=== PATIENT | female | born 1990 | race Caucasian/White ===

== ENCOUNTER 2017-08-05 17:55 | Observation (INO) | payer OTHER ==
[~2017-08-05] VITALS: Ht 162.6 cm; Wt 73.9 kg
[2017-08-05 18:18] VITALS: BP 125/70
[2017-08-05] MEDS ORDERED: TERBUTALINE 1 MG/ML VIAL SUBQ SCH (18:40)
[2017-08-05] MEDS ORDERED: TERBUTALINE 1 MG/ML VIAL SUBQ ONE ×2 (18:59→19:39)
== END 2017-08-05 20:20 | disposition home or self-care (01) ==
LOC: MLD 17:55
PROVIDERS: ADMIT Obstetrics & Gynecology; ATTEND Obstetrics & Gynecology
DX: O62.9 Abnormality of forces of labor, unspecified (principal); Z3A.34 34 weeks gestation of pregnancy
CPT/HCPCS: 96372; G0378; J3105

== ENCOUNTER 2017-08-25 03:20 | Inpatient (IN) | payer OTHER ==
[~2017-08-25] VITALS: Ht 162.6 cm; Wt 76.2 kg
[2017-08-25] MEDS ORDERED: TERBUTALINE 1 MG/ML VIAL SUBQ ONE ×3 (04:14→16:02)
[2017-08-25] MEDS ORDERED: BETAMETH ACET/BETAMETH NA PH 30 MG/5 ML VIAL IM ONE ×2 (04:15→16:22)
[2017-08-25] MEDS ORDERED: ACETAMINOPHEN EXTRA STRENGTH 500 MG TAB ONE (04:29)
[2017-08-25] MEDS ORDERED: BETAMETH ACET/BETAMETH NA PH 30 MG/5 ML VIAL IM PRN (04:30)
[2017-08-25] MEDS ORDERED: TERBUTALINE 1 MG/ML VIAL SUBQ SCH ×2 (05:35→16:05)
[2017-08-25] MEDS ORDERED: ACETAMINOPHEN EXTRA STRENGTH 500 MG TAB PO PRN (05:35)
[2017-08-25 06:07] VITALS: BP 104/69
[2017-08-25 07:01] LABS: BASOPHILS # (AUTO) 0.1 K/uL (0.00-0.22); BASOPHILS % (AUTO) 0.6 % (0.0-2.0); EOSINOPHILS % (AUTO) 0.4 % (0.0-4.0); HEMATOCRIT 31.3 % (36-48); HEMOGLOBIN 10.6 g/dL (12.0-16.0); LYMPHOCYTES # (AUTO) 1.4 K/uL (2.5-16.5); LYMPHOCYTES % (AUTO) 13.4 % (20.5-51.1); MEAN CORPUSCULAR HEMOGLOBIN 28 pg (27-31); MEAN CORPUSCULAR HGB CONC 34 g/dL (33-37); MEAN CORPUSCULAR VOLUME 83 fL (80-94); MONOCYTES # (AUTO) 0.4 K/uL (0.8-1.0); NEUTROPHILS # (AUTO) 8.7 K/uL (1.8-7.7); NEUTROPHILS % (AUTO) 81.6 % (42.2-75.2); PLATELET COUNT (AUTO) 251 K/uL (140-450); RED BLOOD CELL COUNT(AUTO) 3.79 MIL/uL (4.20-5.40); WHITE BLOOD COUNT (AUTO) 10.6 K/uL (4.8-10.8)
[2017-08-25 07:08] LABS: ALBUMIN 2.5 g/dL (3.4-5.0); ANION GAP 16.6 (8-16); CARBON DIOXIDE 20.5 mmol/L (21-32); CREATININE 0.6 mg/dL (0.6-1.3); POTASSIUM 3.1 mmol/L (3.5-5.1); TOTAL BILIRUBIN 0.6 mg/dL (0.0-1.0)
[2017-08-25 09:33] LABS: APPEARANCE,URINE HAZY (CLEAR); BILIRUBIN,URINE NEGATIVE (NEGATIVE); BLOOD, URINE TRACE-I (NEGATIVE); COLOR,URINE YELLOW (YELLOW); LEUKOCYTE ESTERASE ,URINE NEGATIVE (NEGATIVE); NITRITE, URINE NEGATIVE (NEGATIVE); UGLUCOSE NEGATIVE (NEGATIVE)
[2017-08-25 09:43] LABS: RBC,URINE 0-5 (RARE) /HPF (0-5); WBC,URINE 0-5 (RARE) /HPF (0-5); YEAST,URINE Rare /HPF (None Seen)
--- NOTE | 2017-08-25 10:17 | NUR ---
PATIENT HAS BEEN SCREENED AND CATEGORIZED LOW NUTRITION RISK. PATIENT WILL BE SEEN WITHIN 7 DAYS OF ADMISSION. 08/31/[address]
[2017-08-25] MEDS: LACTATED RINGERS 1,000 ML IV SCH ×2 (13:49→16:23)
[2017-08-25] MEDS ORDERED: ceFAZolin 1,000 MG VIAL ONE (20:18)
[2017-08-25] MEDS ORDERED: OXYTOCIN 10 UNITS/ML VIAL ONE (20:29)
[2017-08-25] MEDS ORDERED: METHYLERGONOVINE 0.2 MG/ML AMP ONE (20:30)
[2017-08-25] MEDS ORDERED: BUPIVACAINE-MPF 0.75% 10 ML VIAL INJ ONE (20:36)
[2017-08-25] MEDS ORDERED: OXYTOCIN 10 UNITS/ML VIAL IV ONE (20:36)
[2017-08-25] MEDS ORDERED: ceFAZolin 1,000 MG VIAL IVP ONE (20:40)
[2017-08-25] MEDS ORDERED: MIDAZOLAM 2 MG/2 ML VIAL ONE (20:44)
[2017-08-25] MEDS ORDERED: MORPHINE PRES FREE 10 MG/10 ML AMP IV ONE (20:44)
[2017-08-25] MEDS ORDERED: diphenhydrAMINE 50 MG/ML VIAL ONE (21:19)
[2017-08-25] MEDS ORDERED: OXYTOCIN 20 UNITS/LR PREMIX 1,000 ML IV ONE (21:19)
[2017-08-25] MEDS ORDERED: OXYTOCIN 20 UNITS in LACTATED RINGERS 1,000 ML IV SCH ×2 (21:41→21:42)
[2017-08-25] MEDS ORDERED: MEPERIDINE 25 MG/ML SYR IVP PRN (21:45)
[2017-08-25] MEDS ORDERED: MEASLES, MUMPS, AND RUBELLA 1 VIAL SQVAC PRN (21:45)
[2017-08-25] MEDS ORDERED: SIMETHICONE 80 MG TAB.CHEW PO PRN (21:45)
[2017-08-25] MEDS ORDERED: HYDROmorphone 1 MG/ML AMP IVP PRN (21:45)
[2017-08-25] MEDS ORDERED: NALBUPHINE 10 MG/ML AMP IVP PRN (21:45)
[2017-08-25] MEDS ORDERED: HYDROcodone/APAP 5/325 MG 1 TAB TAB PO PRN (21:45)
[2017-08-25] MEDS ORDERED: METHYLERGONOVINE 0.2 MG/ML AMP IM PRN (21:45)
[2017-08-25] MEDS ORDERED: diphenhydrAMINE 50 MG/ML VIAL IVP PRN ×2 (21:45)
[2017-08-25] MEDS ORDERED: TEMAZEPAM 15 MG CAP PO PRN (21:45)
[2017-08-25] MEDS ORDERED: ONDANSETRON 4 MG/2 ML VIAL IVP PRN ×2 (21:45)
[2017-08-25] MEDS ORDERED: NALOXONE 0.4 MG/ML VIAL IVP PRN ×3 (21:45)
[2017-08-26] MEDS ORDERED: OXYTOCIN 10 UNITS/ML VIAL ONE (02:15)
[2017-08-26] MEDS: KETOROLAC 30 MG/ML VIAL IM/IVP SCH ×4 (06:07→18:28)
[2017-08-26 07:16] LABS: HEMATOCRIT 27.6 % (36-48); HEMOGLOBIN 9.2 g/dL (12.0-16.0); MEAN CORPUSCULAR HEMOGLOBIN 28 pg (27-31); MEAN CORPUSCULAR HGB CONC 33 g/dL (33-37); MEAN CORPUSCULAR VOLUME 83 fL (80-94); RED BLOOD CELL COUNT(AUTO) 3.31 MIL/uL (4.20-5.40); RED CELL DISTRIBUTION WIDTH 14.2 % (11.6-13.7); WHITE BLOOD COUNT (AUTO) 21.9 K/uL (4.8-10.8)
[2017-08-26 07:17] LABS: PLATELET COUNT (AUTO) 246 K/uL (140-450)
[2017-08-26 07:27] LABS: LYMPHOCYTES % (MANUAL) 6 % (20-46); MONOCYTES % (MANUAL) 4 % (5-12)
[2017-08-26] MEDS ORDERED: SODIUM PHOSPHATE 118 ML ENEM RC SCH (09:00)
[2017-08-26] MEDS: DOCUSATE SOD/SENNA 50/8.6 MG 1 TAB PO SCH (21:01)
[2017-08-26] MEDS: IBUPROFEN 800 MG TAB PO PRN (21:03)
[2017-08-26] MEDS ORDERED: AMMONIA AROMATIC 1 INHL INH ONE (22:01)
[2017-08-27] MEDS: KETOROLAC 30 MG/ML VIAL IM/IVP SCH (00:05)
[2017-08-27] MEDS: oxyCODONE/APAP 5/325 MG 1 TAB TAB PO PRN ×3 (06:44→22:30)
[2017-08-27] MEDS: IBUPROFEN 800 MG TAB PO PRN ×2 (10:35→20:17)
[2017-08-27] MEDS: DOCUSATE SOD/SENNA 50/8.6 MG 1 TAB PO SCH ×2 (20:13→20:17)
[2017-08-28] MEDS: IBUPROFEN 800 MG TAB PO PRN ×2 (05:13→13:10)
[2017-08-28] MEDS ORDERED: ACET-8386 PO (09:10)
[2017-08-28] MEDS ORDERED: IBUP-2218 PO (09:10)
== END 2017-08-28 15:00 | disposition home or self-care (01) | DRG 540 ==
LOC: MLD 03:20 → OBSVTOIN 04:00 → MLD 05:28 → MFCC 22:15
PROVIDERS: ADMIT Obstetrics & Gynecology; ATTEND Obstetrics & Gynecology
PROC: 0UL70ZZ Occlusion of Bilateral Fallopian Tubes, Open Approach (ICD-10-PCS; 2017-08-25)
PROC: 10D00Z1 Extraction of Products of Conception, Low, Open Approach (ICD-10-PCS; principal; 2017-08-25 20:30)
DX: O34.211 Maternal care for low transverse scar from previous cesarean delivery (principal); Z30.2 Encounter for sterilization; Z37.0 Single live birth; Z3A.36 36 weeks gestation of pregnancy
CPT/HCPCS: 36415; 80053; 81001; 85025; 86592; 86886; 86900; 86901; G0378; J0690; J0702; J1200; J1885; J2210; J2250; J2270; J2590; J3105; J3490; J7060; J7120

== ENCOUNTER 2020-08-25 19:10 | Emergency (ER) | payer OTHER ==
[~2020-08-25] VITALS: Ht 162.6 cm; Wt 52.6 kg
[~2020-08-25 19:10] MED LIST: ACET-8386 PO; IBUP-2218 PO
[2020-08-25 19:14] VITALS: BP 103/39
--- NOTE | 2020-08-25 19:14 | NUR ---
pt biba taken to bed #4
[2020-08-25] MEDS ORDERED: LORazepam 2 MG/ML VIAL IVP ONE (19:40)
[2020-08-25] MEDS ORDERED: NACL 0.9% 1,000 ML IV ONE (19:40)
--- NOTE | 2020-08-25 19:40 | NUR ---
30 y/o female c/o c/o palpiations and anxiousness. pt states tingling sensation in chest area. denies pain at this time. sinus tachycardia on monitor. lung sounds clear. medhx- hyperthyroidism, graves disease. nka
[2020-08-25 20:11] LABS: BASOPHILS # (AUTO) 0.1 K/uL (0.00-0.22); BASOPHILS % (AUTO) 0.7 % (0.0-2.0); EOSINOPHILS % (AUTO) 0.1 % (0.0-4.0); HEMOGLOBIN 7.3 g/dL (12.0-16.0); LYMPHOCYTES # (AUTO) 1.2 K/uL (2.5-16.5); LYMPHOCYTES % (AUTO) 15.4 % (20.5-51.1); MEAN CORPUSCULAR HEMOGLOBIN 21 pg (27-31); MEAN CORPUSCULAR HGB CONC 31 g/dL (33-37); MONOCYTES # (AUTO) 0.6 K/uL (0.8-1.0); MONOCYTES % (AUTO) 7.8 % (1.7-9.3); NEUTROPHILS # (AUTO) 6.1 K/uL (1.8-7.7); PLATELET COUNT (AUTO) 365 K/uL (140-450); RED BLOOD CELL COUNT(AUTO) 3.47 MIL/uL (4.20-5.40); RED CELL DISTRIBUTION WIDTH 17.4 % (11.6-13.7); WHITE BLOOD COUNT (AUTO) 8.1 K/uL (4.8-10.8)
[2020-08-25 20:33] LABS: ALBUMIN 4.1 g/dL (3.4-5.0); ANION GAP 15.5 (8-16); ASPARTATE AMINOTRANSFERASE 23 U/L (15-37); CARBON DIOXIDE 23.4 mmol/L (21-32); CHLORIDE 104 mmol/L (98-107); CREATININE 0.7 mg/dL (0.6-1.3); FREE T4 (FREE THYROXINE) 0.97 ng/dL (0.76-1.46); GFR ARICAN-AMERICAN 126 mL/min (>90); GLUCOSE 124 mg/dL (74-106); SODIUM SERUM 140 mmol/L (136-145); THYROID STIMULATING HORMONE 4.79 uIU/mL (0.34-3.74); TOTAL BILIRUBIN 0.8 mg/dL (0.0-1.0); UREA NITROGEN, BLOOD 16 mg/dL (7-18)
[2020-08-25 20:40] LABS: ACETAMINOPHEN < 0.5 ug/ml (10-30); POTASSIUM 2.9 mmol/L (3.5-5.1); SALICYLATE < 2.8 mg/dL (2.8-20.0)
[2020-08-25] MEDS ORDERED: POTASSIUM CHLORIDE 10 MEQ TABER PO ONE (20:40)
--- NOTE | 2020-08-25 20:40 | NUR ---
CRITICAL LAB VALUE REPORTED FROM [facility] FOR A POTASSIUM LEVEL OF 2.9 ERMD MADE AWARE
--- NOTE | 2020-08-25 21:09 | NUR ---
RECIEVED CALL FROM LAB, BLOOD IS SPECIAL ORDER. STATED BLOOD WILL NOT BE READY FOR 4-[address] SALAZAR MADE AWARE.
--- NOTE | 2020-08-25 23:17 | NUR ---
PT HAS EYES CLOSED, RESPIRATIONS EVEN AND UNLABORED. CHEST RISE IS SYMMERTICAL. WILL CONTINUE TO MONITOR.
--- NOTE | 2020-08-26 01:17 | NUR ---
called lab, stated blood will be ready in 45 min.
--- NOTE | 2020-08-26 02:20 | NUR ---
Consent signed per DR SALAZAR agreeing to administration of blood. Blood has been type and crossmatched. Blood sent from blood bank. Information on unit of blood checked against patient wristband at bedside by two nurses. All information matches. Patient or responsible green party informed of potential complications associated with blood transfusion. Informed of possible transfusion reaction symptoms. Aware of need to notify nurse at once of itching, shortness of breath, flushing, feeling of impending doom, or other symptoms not previously present. Vital signs taken within 5 minutes prior to initiation of transfusion. RN will remain with patient for first 15 minutes of transfusion at which time vital signs will be re-assessed.
--- NOTE | 2020-08-26 04:30 | NUR ---
BLOOD TRANSFUSION CURRENTLY INFUSING. WILL CONTINUE TO MONITOR.
--- NOTE | 2020-08-26 05:00 | NUR ---
BLOOD TRANSFUSISON COMPLETED, SHELTOND MADE AWARE.
[2020-08-26 05:15] VITALS: BP 98/61
--- NOTE | 2020-08-26 05:15 | NUR ---
Patient discharged with v/s stable. Written and verbal after care instructions given and explained. Patient alert, oriented and verbalized understanding of instructions. Ambulatory with steady gait. All questions addressed prior to discharge. ID band removed. Patient advised to follow up with PMD. Rx of TAPAZOLE AND ATENOLOL given. Patient educated on indication of medication including possible reaction and side effects. Opportunity to ask questions provided and answered.
== END 2020-08-26 05:15 | disposition home or self-care (01) ==
LOC: MED 19:10
DX: E05.00 Thyrotoxicosis with diffuse goiter without thyrotoxic crisis or storm (principal); D64.9 Anemia, unspecified; F41.9 Anxiety disorder, unspecified; I10 Essential (primary) hypertension; Z79.899 Other long term (current) drug therapy
CPT/HCPCS: 36415; 80053; 84439; 84443; 85025; 86886; 86900; 86901; 86920; 93005; 96361; 96374; 99285; G0480; G0482; J2060; J7030; P9016; 99284

== ENCOUNTER 2020-08-28 01:10 | Emergency (ER) | payer OTHER ==
[~2020-08-28] VITALS: Ht 162.6 cm; Wt 51.7 kg
[2020-08-28 01:15] VITALS: BP 100/60
--- NOTE | 2020-08-28 01:18 | NUR ---
TO LOBBY A/W BED AMBULATORY
--- NOTE | 2020-08-28 02:09 | NUR ---
PT TAKEN TO RAD VIA W/C
--- NOTE | 2020-08-28 02:39 | NUR ---
PT AMBULATED TO BED #7
--- NOTE | 2020-08-28 02:50 | NUR ---
COVERING PRIMARY RN FOR LUNCH RELIEF---- SEE COMPLETE ASSESSMENT
[2020-08-28] MEDS ORDERED: KETOROLAC 30 MG/ML VIAL IVP ONE (02:55)
[2020-08-28] MEDS ORDERED: NACL 0.9% 1,000 ML IV ONE (02:55)
--- NOTE | 2020-08-28 02:59 | NUR ---
20G IV TO LT AC. BLOOD COLLECTED VIA IV START. IV LINE FLUSED AT PATENT.
[2020-08-28 03:07] LABS: BASOPHILS % (AUTO) 0.6 % (0.0-2.0); EOSINOPHILS % (AUTO) 0.3 % (0.0-4.0); HEMATOCRIT 29.4 % (36-48); HEMOGLOBIN 8.9 g/dL (12.0-16.0); LYMPHOCYTES % (AUTO) 17.6 % (20.5-51.1); MEAN CORPUSCULAR HEMOGLOBIN 22 pg (27-31); MEAN CORPUSCULAR HGB CONC 30 g/dL (33-37); MEAN CORPUSCULAR VOLUME 72.9 fL (80-94); MONOCYTES # (AUTO) 0.7 K/uL (0.8-1.0); MONOCYTES % (AUTO) 11.2 % (1.7-9.3); NEUTROPHILS # (AUTO) 4.2 K/uL (1.8-7.7); NEUTROPHILS % (AUTO) 70.3 % (42.2-75.2); PLATELET COUNT (AUTO) 291 K/uL (140-450); RED BLOOD CELL COUNT(AUTO) 4.03 MIL/uL (4.20-5.40); RED CELL DISTRIBUTION WIDTH 19.1 % (11.6-13.7); WHITE BLOOD COUNT (AUTO) 5.9 K/uL (4.8-10.8)
[2020-08-28 03:18] LABS: ANION GAP 22.1 (8-16); CARBON DIOXIDE 25.8 mmol/L (21-32); CREATININE 0.6 mg/dL (0.6-1.3); POTASSIUM 3.9 mmol/L (3.5-5.1)
[2020-08-28] MEDS ORDERED: fentaNYL citrate 0.05 MG/ML VIAL IVP ONE (03:30)
[2020-08-28] MEDS ORDERED: LORazepam 2 MG/ML VIAL IVP ONE (03:35)
--- NOTE | 2020-08-28 03:45 | NUR ---
PT STILL HAVING PAIN, NO RELIEF FROM TORADOL, MD SALAZAR AWARE AND AT BEDSIDE.
--- NOTE | 2020-08-28 04:08 | NUR ---
PT STATES PAIN IS BETTER RATING IT 3/10
[2020-08-28 04:34] VITALS: BP 101/59
--- NOTE | 2020-08-28 04:35 | NUR ---
Patient discharged with v/s stable. Written and verbal after care instructions given and explained. Patient alert, oriented and verbalized understanding of instructions. Ambulatory with steady gait. All questions addressed prior to discharge. ID band removed. Patient advised to follow up with PMD. Rx of ROBAXIN, TRMADOL, AND MOTRIN given. Patient educated on indication of medication including possible reaction and side effects. Opportunity to ask questions provided and answered.
== END 2020-08-28 04:35 | disposition home or self-care (01) ==
LOC: MED 01:10
DX: S16.1XXA Strain of muscle, fascia and tendon at neck level, initial encounter (principal); I10 Essential (primary) hypertension; E07.9 Disorder of thyroid, unspecified; Z79.899 Other long term (current) drug therapy; Z88.8 Allergy status to other drugs, medicaments and biological substances; X58.XXXA Exposure to other specified factors, initial encounter; Y93.89 Activity, other specified; Y92.89 Other specified places as the place of occurrence of the external cause; Y99.8 Other external cause status
CPT/HCPCS: 36415; 72040; 80048; 85025; 96361; 96374; 96375; 99284; J1885; J2060; J3010; J7030

== ENCOUNTER 2020-09-08 18:13 | Emergency (ER) | payer OTHER ==
[~2020-09-08] VITALS: Ht 162.6 cm; Wt 57.6 kg
[2020-09-08 18:18] VITALS: BP 104/59
--- NOTE | 2020-09-08 18:23 | NUR ---
PT PLACED IN BED 5.
--- NOTE | 2020-09-08 19:10 | NUR ---
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 . PT DESCRIBES PAIN SHARP AND NUMB. DENIES N/V/D; SKIN IS PINK/WARM/DRY; AAOX4 WITH EVEN AND STEADY GAIT; LUNGS CLEAR BL; HR EVEN AND REGULAR; PT DENIES ANY FEVER. PATIENT STATES PAIN OF 3/10 AT THIS TIME; VSS; PATIENT POSITIONED FOR COMFORT; HOB ELEVATED; BEDRAILS UP X2; BED DOWN. ER MD MADE AWARE OF PT STATUS. PMH : GRAVES DISEASE
[2020-09-08 19:39] LABS: BASOPHILS # (AUTO) 0.1 K/uL (0.00-0.22); BASOPHILS % (AUTO) 1.7 % (0.0-2.0); EOSINOPHILS % (AUTO) 0.4 % (0.0-4.0); HEMATOCRIT 28.8 % (36-48); HEMOGLOBIN 8.8 g/dL (12.0-16.0); LYMPHOCYTES # (AUTO) 1.8 K/uL (2.5-16.5); LYMPHOCYTES % (AUTO) 27.1 % (20.5-51.1); MEAN CORPUSCULAR HEMOGLOBIN 22 pg (27-31); MEAN CORPUSCULAR HGB CONC 30 g/dL (33-37); MEAN CORPUSCULAR VOLUME 73.2 fL (80-94); MONOCYTES # (AUTO) 0.4 K/uL (0.8-1.0); MONOCYTES % (AUTO) 6.5 % (1.7-9.3); NEUTROPHILS # (AUTO) 4.3 K/uL (1.8-7.7); NEUTROPHILS % (AUTO) 64.3 % (42.2-75.2); PLATELET COUNT (AUTO) 332 K/uL (140-450); RED BLOOD CELL COUNT(AUTO) 3.93 MIL/uL (4.20-5.40); RED CELL DISTRIBUTION WIDTH 20.3 % (11.6-13.7); WHITE BLOOD COUNT (AUTO) 6.7 K/uL (4.8-10.8)
[2020-09-08 19:46] LABS: ANION GAP 13.2 (8-16); CARBON DIOXIDE 26.2 mmol/L (21-32); CREATININE 0.6 mg/dL (0.6-1.3); POTASSIUM 3.4 mmol/L (3.5-5.1)
[2020-09-08 20:43] VITALS: BP 104/59
--- NOTE | 2020-09-08 20:43 | NUR ---
PATIENT ELOPED FROM FACILITY. DISCHARGE INSTRUCTIONS NOT GIVEN TO PATIENT. DR. BRODY NOTIFIED.
== END 2020-09-08 20:43 | disposition left against medical advice (07) ==
LOC: MED 18:13
DX: R07.9 Chest pain, unspecified (principal); I10 Essential (primary) hypertension; E05.90 Thyrotoxicosis, unspecified without thyrotoxic crisis or storm; Z88.8 Allergy status to other drugs, medicaments and biological substances; Z79.899 Other long term (current) drug therapy
CPT/HCPCS: 36415; 71045; 80048; 84443; 84484; 85025; 93005; 99285

== ENCOUNTER 2020-11-07 22:29 | Emergency (ER) | payer OTHER ==
[~2020-11-07] VITALS: Ht 162.6 cm; Wt 53.1 kg
[2020-11-07 22:33] VITALS: BP 121/70
--- NOTE | 2020-11-07 22:33 | NUR ---
TO BED AMBULATORY
--- NOTE | 2020-11-07 22:45 | NUR ---
30 y/o female presented to ED c/o shakiness. Pt states "I am not feeling well , I have graves disease and feel shakey and have chest pain. I'm not sure if I'm just feeling anxious or it's something else." Pt A/O x 4 . RR even and unlabored. S1S2 noted. 94 HR. No edema noted. Cap refill < 3 sec. Pt denies N/V/D, fever, body aches and chills. Pt placed in gown, resting in bed,locked and in lowest position, HOB elevated, side rail x1. Pt placed on air sampling and monitoring, pulse ox and BP cuff. No acute distress noted at this time. pmh: graves disease, htn & left shoulder pain ax: amitriptyline
--- NOTE | 2020-11-07 22:48 | NUR ---
Pt ambulated to restroom w/ steady gait.
--- NOTE | 2020-11-07 22:50 | NUR ---
Urine sample collected and handed to [facility] tech.
--- NOTE | 2020-11-07 22:54 | NUR ---
20g IV established in the Rt a/c , blood labs drawn from IV and handed to Paulette Bessemer Converter Blower. IV flushed w/ 10cc NS . IV patent, no pain, redness or swelling noted at IV site.
--- NOTE | 2020-11-07 22:55 | NUR ---
EMT at bedside for EKG.
[2020-11-07 23:04] LABS: BASOPHILS % (AUTO) 0.7 % (0.0-2.0); EOSINOPHILS % (AUTO) 0.5 % (0.0-4.0); HEMATOCRIT 34.2 % (36-48); LYMPHOCYTES # (AUTO) 2.5 K/uL (2.5-16.5); LYMPHOCYTES % (AUTO) 41.7 % (20.5-51.1); MEAN CORPUSCULAR HEMOGLOBIN 26 pg (27-31); MEAN CORPUSCULAR HGB CONC 32 g/dL (33-37); MEAN CORPUSCULAR VOLUME 78.9 fL (80-94); MONOCYTES # (AUTO) 0.5 K/uL (0.8-1.0); MONOCYTES % (AUTO) 8.9 % (1.7-9.3); NEUTROPHILS # (AUTO) 2.9 K/uL (1.8-7.7); NEUTROPHILS % (AUTO) 48.2 % (42.2-75.2); PLATELET COUNT (AUTO) 425 K/uL (140-450); RED BLOOD CELL COUNT(AUTO) 4.34 MIL/uL (4.20-5.40); RED CELL DISTRIBUTION WIDTH 22.5 % (11.6-13.7)
[2020-11-07 23:15] LABS: BARBITURATE, URINE NEGATIVE ng/ml (NEG <=200); BENZODIAZEPINE, URINE NEGATIVE ng/mL (NEG <=200); CANNABINOID, URINE POSITIVE ng/mL (NEG <=50); COCAINE, URINE NEGATIVE ng/mL (NEG <=300); OPIATE, URINE NEGATIVE ng/mL (NEG <=2000); PHENCYCLIDINE SCREEN,URINE NEGATIVE ng/mL (NEG <=25)
[2020-11-07 23:31] LABS: ALBUMIN 4.7 g/dL (3.4-5.0); ANION GAP 15.2 (8-16); ASPARTATE AMINOTRANSFERASE 15 U/L (15-37); CARBON DIOXIDE 25.2 mmol/L (21-32); CHLORIDE 103 mmol/L (98-107); CREATININE 0.8 mg/dL (0.6-1.3); FREE T4 (FREE THYROXINE) 0.81 ng/dL (0.76-1.46); GFR ARICAN-AMERICAN 108 mL/min (>90); GLUCOSE 119 mg/dL (74-106); POTASSIUM 3.4 mmol/L (3.5-5.1); SODIUM SERUM 140 mmol/L (136-145); THYROID STIMULATING HORMONE 26.16 uIU/mL (0.34-3.74); UREA NITROGEN, BLOOD 17 mg/dL (7-18)
--- NOTE | 2020-11-07 23:33 | NUR ---
RAMESH Birch at bedside for medical evaluation.
[2020-11-07 23:45] LABS: ACETAMINOPHEN < 0.5 ug/ml (10-30); SALICYLATE < 2.8 mg/dL (2.8-20.0)
--- NOTE | 2020-11-08 00:03 | NUR ---
IV removed, catheter intact and site benign. Applied folded 4x4 gauze and tape to stop bleeding.
[2020-11-08 00:05] VITALS: BP 101/53
== END 2020-11-08 00:05 | disposition home or self-care (01) ==
LOC: MED 22:29
DX: F41.9 Anxiety disorder, unspecified (principal); R00.2 Palpitations; I10 Essential (primary) hypertension; E07.9 Disorder of thyroid, unspecified; F17.200 Nicotine dependence, unspecified, uncomplicated; F12.90 Cannabis use, unspecified, uncomplicated; Z79.899 Other long term (current) drug therapy; Z88.8 Allergy status to other drugs, medicaments and biological substances; Z98.890 Other specified postprocedural states
CPT/HCPCS: 36415; 80053; 80305; 84439; 84443; 84479; 84702; 85025; 99284; G0480; G0482; 93005